=== PATIENT | female | born 1995 | race Caucasian/White ===

== ENCOUNTER 2017-06-18 15:45 | Emergency (ER) | payer OTHER ==
[~2017-06-18] VITALS: Ht 165.1 cm; Wt 58.1 kg
--- NOTE | 2017-06-18 15:55 | ED PSYCHIATRIC COMPLAINT ---
History of Present Illness General Chief Complaint: Psychiatric Related Complaint Stated Complaint: BIBA ON POLICE PAPER +SI Source: patient, police Exam Limitations: no limitations Vital Signs & Intake/Output Vital Signs & Intake/Output Vital Signs Date Time Temp Pulse Resp B/P B/P Pulse O2 O2 Flow FiO2 Mean Ox Delivery Rate 06/19 1233 97.8 75 20 123/74 98 Room Air 06/19 1015 98.0 82 18 102/53 99 Triage Nurses Notes Reviewed? yes Onset: Abrupt Duration: day(s):, constant, continues in ED Timing: recent history Severity: moderate, severe HPI: 22-year-old female comes into the emergency room for further evaluation of supposedly suicidal comments the police. Patient reports that she was in argument with her boyfriend. He found out her boyfriend treated her with another girl that has herpes. They were arguing on the phone. They were back and forth between phone calls. She was very tearful and crying and upset about the situation. She reports that he told her she should just go kill herself. Somehow the police were called. She reports that she did not say she wanted to kill herself but had the thought of what she just didn't exist. She has a history of bipolar. She has not been admitted recently but was admitted a couple years ago for overdose on Xanax she reports. She reports that she did some mildly the other night at a rave alliance party but denies any other drug use. (Kyler Dunlap) Past History Travel History Traveled to [place] past 21 day No Medical History Any Pertinent Medical History? see below for history Psychiatric: bipolar disease Surgical History Surgical History: non-contributory Psychosocial History Where do you live Home Services at Home None What is your primary language Kyrgyz Family History Hx Contributory? No (Kyler Dunlap) Review of Systems Review of Systems Constitutional: Reports: no symptoms. EENTM: Reports: no symptoms. Respiratory: Reports: no symptoms. Cardiovascular: Reports: no symptoms. GI: Reports: no symptoms. Genitourinary: Reports: no symptoms. Musculoskeletal: Reports: no symptoms. Skin: Reports: no symptoms. Neurological/Psychological: Reports: see HPI. Hematologic/Endocrine: Reports: no symptoms. Immunologic/Allergic: Reports: no symptoms. All Other Systems: Reviewed and Negative (Kyler Dunlap) Physical Exam Physical Exam General Appearance: well developed/nourished, mild distress Head: atraumatic Eyes: Bilateral: normal appearance. Ears, Nose, Throat: normal ENT inspection, hearing grossly normal Neck: normal inspection Respiratory: normal breath sounds, no respiratory distress Cardiovascular: regular rate/rhythm Extremities: normal range of motion Neurological/Psychiatric: awake, alert, depressed affect, tearful Appearance/Memory/Insight: appropriate appearance Behavoir/Eye Contact/Speech: cooperative Thoughts/Hallucinations: no apparent hallucination Skin: intact, normal color, warm/dry (Kyler Dunlap) SAD PERSONS Done? patient not suicidal (Renato Luna MD) Progress Differential Diagnosis: dementia, drug intoxication, drug overdose, drug withdrawal, bipolar, anxiety, depression, borderline personality, Hand-Off Endorsed To: Namrata Urbina MD Endorsed Time: 0001 Pending: consult (crisis) (Kyler Dunlap) Plan of Care: Orders Procedure Date/time Status Continuous Observation Monitor 06/19 0700 Active 06/18/2017 11:55:00 PM Patient signed out to me by CATRINA Blackburn. Pending crisis evaluation. Patient is on a police paper for evaluation. Hand-Off Endorsed To: Renato Luna MD Endorsed Time: 0700 Pending: consult (Namrata Urbina MD) Comments: Cleared by psychiatry for discharge. (Renato Luna MD) Departure Departure Condition: Stable (Kyler Dunlap) Departure Time of Disposition: 1215 Disposition: HOME OR SELF CARE Clinical Impression Primary Impression: Depression Qualifiers: Depression Type: unspecified Qualified Code: F32.9 - Major depressive disorder, single episode, unspecified Secondary Impressions: Cocaine abuse Additional Instructions: Follow up with the recommendations of the psychiatric nurse practitioner. Departure Forms: General Discharge Information PA/NATIONAL SALES CONSULTANT Co-Sign Statement Statement: ED Attending supervision documentation- I saw and evaluated the patient. I have also reviewed all the pertinent lab results and diagnostic results. I agree with the findings and the plan of care as documented in the PA's/NATIONAL SALES CONSULTANT's documentation. x I have reviewed the ED Record and agree with the PA's/NATIONAL SALES CONSULTANT's documentation. [] Additions or exceptions (if any) to the PAs/NATIONAL SALES CONSULTANT's note and plan are summarized below: [] (Renato Luna MD) (Kyler Dunlap) Departure Time of Disposition: 1215 Disposition: HOME OR SELF CARE Clinical Impression Primary Impression: Depression Qualifiers: Depression Type: unspecified Qualified Code: F32.9 - Major depressive disorder, single episode, unspecified Secondary Impressions: Cocaine abuse Additional Instructions: Follow up with the recommendations of the psychiatric nurse practitioner. Departure Forms: General Discharge Information PA/NATIONAL SALES CONSULTANT Co-Sign Statement Statement: ED Attending supervision documentation- I saw and evaluated the patient. I have also reviewed all the pertinent lab results and diagnostic results. I agree with the findings and the plan of care as documented in the PA's/NATIONAL SALES CONSULTANT's documentation. x I have reviewed the ED Record and agree with the PA's/NATIONAL SALES CONSULTANT's documentation. [] Additions or exceptions (if any) to the PAs/NATIONAL SALES CONSULTANT's note and plan are summarized below: [] (Renato Luna MD) Departure Departure Condition: Stable (Kyler Dunlap) Departure Time of Disposition: 1215 Disposition: HOME OR SELF CARE Clinical Impression Primary Impression: Depression Qualifiers: Depression Type: unspecified Qualified Code: F32.9 - Major depressive disorder, single episode, unspecified Secondary Impressions: Cocaine abuse Additional Instructions: Follow up with the recommendations of the psychiatric nurse practitioner. Departure Forms: General Discharge Information (Renato Luna MD)
[2017-06-18 16:23] LABS: ABSOLUTE BASOPHIL COUNT 0.1 /CUMM (0.0-0.2); ABSOLUTE EOSINOPHIL COUNT 0 /CUMM (0.0-0.7); ABSOLUTE GRANULOCYTE CT 4.3 /CUMM (1.4-6.5); ABSOLUTE LYMPH COUNT 2.7 /CUMM (1.2-3.4); ABSOLUTE MONOCYTE COUNT 0.5 /CUMM (0.10-0.60); BASOPHIL % 1.1 % (0.0-2.0); EOSINOPHIL % 0.2 % (0-5); GRANULOCYTE % 56.8 % (42.2-75.2); MEAN CORPUSCULAR HGB 31.8 PG (27.0-31.0); MEAN CORPUSCULAR HGB CONC 33.2 G/DL (33.0-37.0); MEAN CORPUSCULAR VOLUME 95.7 FL (81.0-99.0); PLATELET COUNT 256 /CUMM (130-400); RBC DISTRIBUTION WIDTH 13.6 % (11.5-14.5); RED BLOOD CELL CT 4.07 /CUMM (4.20-5.40); WHITE BLOOD CELL COUNT 7.6 /CUMM (4.8-10.8)
--- NOTE | 2017-06-18 20:20 | ED PSYCH CRISIS CONSULTATION ---
See Addendum Crisis Consult Basic Assessment Date of Consult: 06/18/17 Responsible Person/Accompanied By: Self Insurance Authorization: Insurance #1: Insurance name: TYSHAWN BARBOSA Phone number: Policy number: [id number] Group number: Authorization number: ED Provider: Patient's ED Provider: Kyler Dunlap Primary Care Physician: Patient's PCP: Patient Has No Primary Care Dr PCP's Phone Number: Current Psychiatrist: Lorena Wei MD Chief Complaint: Psychiatric Related Complaint Patient's Quote: "I got into a fight with my boyfriend" Present Illness: Pt is a 22 year old single female BIBA on PEER. The police report indicates that the pt made a suicidal gesture over facetime to her boyfriend (it said pt simulated slitting her throat) and said olegario wanted to hurt herself. Pt was alert and oriented, tearful with labile mood. Expressed that she is feeling really sad, and upset because she learned today that her boyfriend cheated on her with another female who knowingly has an STD. Pt denies suicidal thoughts at this time and states that she did not say to her boyfriend she wanted to her herself. Pt said she told her boyfriend "this is pointless and you make me feel worthless" Pt has a mental health history she was diagnosed with Bipolar Disorder and Depression and is currently seeing a psychiatrist at [facility] in [place]. She does individual therapy weekly, but she is not on any psychotropic medications. Pt reports 3 years ago she had an accidental overdose of Xanax and woke up at [facility] and said "I don't understand why I'm alive" She was held for observation at [facility] and then released. She was not admitted to the hospital. Utox was completed, and she was positive for Cocaine. Consultation with Dr. Ramos and the recommendation was for the client to be held overnight and reassesed in the morning. Patient's Address: [address] [place] [address] Other Phone Number: Who Do You Live With? Mother Family/Informants Interviewed: Phone contact with Nataliia Dustin mother who said she doesn't believe the pt has the intent to kill herself. Laboratory Results: Laboratory Tests 06/18/17 1618: Anion Gap 15, Estimated GFR > 60, BUN/Creatinine Ratio 14.3, Glucose 80, Calcium 9.9, Total Bilirubin 1.0, AST 17, ALT 27, Alkaline Phosphatase 48, Total Protein 7.6, Albumin 5.0, Globulin 2.6, Albumin/Globulin Ratio 1.9, CBC w Diff NO MAN DIFF REQ, RBC 4.07 L, MCV 95.7, MCH 31.8 H, MCHC 33.2, RDW 13.6, MPV 9.0, Gran % 56.8, Lymphocytes % 35.1, Monocytes % 6.8, Eosinophils % 0.2, Basophils % 1.1, Absolute Granulocytes 4.3, Absolute Lymphocytes 2.7, Absolute Monocytes 0.5, Absolute Eosinophils 0, Absolute Basophils 0.1, Serum Alcohol 103.0 06/18/17 1610: Urine Opiates Screen < 100, Methadone Screen < 40, Barbiturate Screen < 60, Ur Phencyclidine Scrn < 6.00, Amphetamines Screen 160, U Benzodiazepines Scrn < 85, Urine Cocaine Screen > 1000 H, Urine Cannabis Screen < 5.00, Urine Test NEGATIVE (Brodie Hendrix LCSW) Addendum Note Addendum Pt was reassessed this morning in response to hold over/reassessment plan. Pt stated that she feels okay today. She stated, "I'm just tired and want to get back to work today". 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 Pt denied any suicidal ideations or intent. She stated that she was upset over her situation with her boyfriend. She stated that she has been dating her boyfriend for the past five years, but claimed she has no intention on going back with him. Pt stated that she lives with her mother, step father, sister and sister's boyfriend. Pt stated that her family is supportive and she has no significant problems at home. Pt stated that she has been seeing her therapist Scotty at [facility] in [place] [phone] fax [phone]. Pt stated that she has seen Scotty 4-5 times in the past and has an appointment scheduled for tomorrow. Pt also explained that she and Scotty have been exploring whether medications may be an option. Clinician called and left a voice message for Scotty. Clinician was also asked by the law office receptionist to fax over a release of information. Release was signed by pt and faxed over to [facility]. Clinician was able to reach pt's step father Indra Mccormick [phone]. Indra expressed support for pt and is aware of pt's follow up appointment tomorrow with therapist Scotty. Pt's mother was also in the background of the call and stated that she too would reinforce that pt make her appointment with Scotty tomorrow. Pt was alert and oriented. She was cooperative and receptive toward the evaluation process. Her speech and thoughts were clear and well organized. There were no s/s of psychotic processes. Her mood and affect were within normal limits as well. Pt denied any current suicidal ideations or intent. She was future oriented and goal directed. There was no noted sense of hopelessness and she identified reasons for living. Pt's current needs meet an outpatient level of care which is recommended at this time. Pt's mother and step father are supporting an outpatient level of care as well. Case was discussed with the territory sales consultant psychiatrist and plan is to release pt. Pt to follow up with current outpatient provider. (Tyree Roland LPC) Past History Past Medical History Respiratory: asthma Psychiatric: bipolar disease, depression, substance abuse Past Surgical History Surgical History: non-contributory Psychosocial History Strengths/Capabilities: Supportive family Employed Physical Limitations (Interventions): None Psychiatric Treatment History Psych Treatment Psychiatric Treatment Yes Inpatient Treatment No Outpatient Treatment Yes Location of Treatment [facility] Reason for Treatment Bipolar Disorder Dates of Treatment Current, active Response to Treatment Positve Diagnosis by History: Bipolar disorder Substance Use/Abuse History Drug Use/Abuse Substances Used/Abused Yes Substance Used/Abused Cocaine First Use Age 20 Last Used 20 How much used/taken Smoked Natalie How often Ocassionally For how long Unknown Route of use Smoke Substance Abuse Treatment Substance Abuse Treatment Past Substance Abuse [place] No Inpatient Treatment No Outpatient Treatment No Location of Treatment N/A Reason for Treatment N/A Dates of Treatment N/A Response to Treatment N/A (Ruma HAMMOND,Brodie) Current Mental Status Mental Status Orientation: Person, Place, Situation Affect: Depressed, Sad Speech: Soft Neuro-vegetative: WNL Appearance Appearance- Dress/Hygiene: Clean and groomed Behaviors Thought Process: WNL Thought Content: WNL Memory: WNL Insight: WNL SI/HI Risk Assessment Past Suicidal Ideation/Attempts No Current Suicidal Ideation/Att No Past Homicidal Ideation/Att: No Current Homicidal Ideation/Attempts No Degree of Intent: None Danger To: N/A Gravely Disabled: N/A Risk Factors: age (under 24/over 65), high anxiety/distress, poor impulse control Lethality Ratin PTSD Checklist PTSD Done? patient declined ED Management Sitter: Yes Restraints: No (Brodie Hendrix LCSW) DSM5/PS Stressors/Medical Prob Diagnosis' (DSM 5, Stressors, Medical): F32.9 Depressive Disorder Unspecified F14.20 Cocaine Use Disorder Severe Current GAF: 35 (Brodie Hendrix LCSW) Departure Disposition Psych Medical Clearance Date: 06/18/17 Medically Cleared at: 0434 Time Started: 0630 Time Ended: 0700 Psychiatrist Consulted: Lorena Ramos MD Date Disposition Established: 06/18/17 Time Disposition Established: 07 Plan for Disposition - Modality: Hold Over Facility: [facility] Follow-up Appt Date: 06/19/17 Follow-Up Appt Time: 0800 Contact: Crisis Telephone: [phone] Rationale for Disposition: Pt was BIBA on PEER for reports of suicidal thoughts. Pt currently denies having suicidal ideation or plan, but mood is labile, and utox is positive for cocaine as a result, pt will be held overnight for observation and reevaluation in the morning. Referrals Patient Has No Primary Care Dr (PCP/Family) (Brodie Hendrix LCSW)
[2017-06-19 12:33] VITALS: BP 123/74
== END 2017-06-19 12:34 ==
LOC: ERH 15:45
PROVIDERS: Physician Assistant Medical
DX: F32.9 Major depressive disorder, single episode, unspecified (principal); F14.10 Cocaine abuse, uncomplicated
CPT/HCPCS: 80307; 81025; G0463; G0480